=== PATIENT | male | born 1985 | race Caucasian/White ===

== ENCOUNTER 2016-11-25 22:43 | Emergency (ER) | payer OTHER ==
[~2016-11-25] VITALS: Ht 177.8 cm; Wt 105.1 kg
[2016-11-26 00:01] VITALS: BP 132/83
== END 2016-11-26 00:01 | disposition home or self-care (01) ==
LOC: EME 22:43
DX: J06.9 Acute upper respiratory infection, unspecified (principal); B34.9 Viral infection, unspecified
CPT/HCPCS: 71020; 99281; 99283